=== PATIENT | female | born 1990 | race Asian ===

== ENCOUNTER → 2017-01-04 | Outpatient (CLI) | payer OTHER | LOC: HPND 13:05 | PROVIDERS: ATTEND Obstetrics & Gynecology | DX: O35.8XX0 Maternal care for other (suspected) fetal abnormality and damage, not applicable or unspecified (principal); Z3A.30 30 weeks gestation of pregnancy | CPT/HCPCS: 76811 ==

== ENCOUNTER → 2017-01-17 | Outpatient (CLI) | payer MEDICAID, OTHER ==
--- NOTE | 2017-01-17 15:44 | HHI.PCNN ---
Note Status Note Status: Consultation Condition: Good HPI Monitoring: Continuous Weight/Length/Head Circumferen Temperature Control: Crib Interval History Ms. Jason Castle and the father of the baby, . Bryan Duvall presented to [facility] today (01/17) for further evaluation of 3D u/s performed in OB office on 01/04/17 that was concerning for L unilateral cleft lip. 01/17 u/s confirms findings of unilateral L cleft lip with possible palate involvement. Parents had been educated by [facility] Dr. Kat regarding cleft lip/palate and given an information packet. Parents have also began doing their own research on the internet. DINKEY OPERATOR SLATE met with MOB and FOB to discuss care of infant. Mom is a 27y/o, (2 EAB with D & C). Mom denied any medication use during aside from PNV & Iron. There is no family history of genetic syndromes or congenital anomalies noted on either side of the family. Maternal cell free DNA was negative per discussion with Dr. Kat. Cleft lip/palate described, potential to be associated with other congenital anomalies discussed , need to assess 's ability to orally feed (mom desires to breast feed/ provide breast milk), potential need for NG feeds, and potential need for transfer to tertiary care facility if other anomalies noted at delivery or if is unable to orally feed. Parents were told that would ultimately need reconstructive surgery but the timing of that surgery would be at some point in the future and would be determined by the surgeon on a case by case basis. Dad was concerned about insurance coverage (mom currently has medicaid) with regards to reconstruction being considered cosmetic/elective. DINKEY OPERATOR SLATE informed parents that she was uninformed on the specifics of insurance coverage but that the reconstruction is not elective and that the craniofacial team involved in the reconstruction would be able to assist with navigating insurance coverage. Parents verbalized understanding and asked appropriate questions. They desire consultation with craniofacial teams at [facility] in [place] (referral made, contact number [phone]) and at [facility] in [place] (spoke with Dr. Conde and parental contact information given, office number [phone]). Parents were given NICU phone number and have contact information from [facility] if they have any further questions or if they do not receive contact from either practice to arrange consultation. Impression & Plan Problem List: (1) Fetus with suspected cleft lip and palate, antepartum Status: Acute Impression & Plan Remarks Uncomplicated for a 26 y/o, with a late diagnosis of cleft lip and potential cleft palate. Will plan on delivery at [place] with referral for consultation with craniofacial teams at [facility] in [place] and [facility] in [place]. 45 minutes spent on this consult with more than 50% of this time in face to face consultation/coordination of care with other facilities. Full Condition Update to: Mother, Father Maternal/Delivery/Infant Info Maternal Information Maternal Risk Factors Other: diagnosis of L unilateral cleft lip and possibly cleft palate. Maternal Hepatitis B: Negative Maternal VDRL: Negative Maternal Gonorrhea: Negative Maternal Chlamydia: Negative Maternal Group B Strep: Unknown Maternal HIV: Negative Other Maternal Labs: Rubella immune Results are first trimester labs. GBS has not yet been completed. Delivery Information Delivery Provider: Reina Maternal Blood Type: O Maternal Rh Type: Positive Information Planned Feeding: Breast Milk Problem Qualifiers (1) Fetus with suspected cleft lip and palate, antepartum: Qualified Code: O35.8XX0 - Fetus with suspected cleft lip and palate, antepartum, not applicable or unspecified fetus Lety Tirado Jan 17, 2017 15:44
== END ==
LOC: HPND 12:20
PROVIDERS: ATTEND Obstetrics & Gynecology
DX: O35.1XX0 Maternal care for (suspected) chromosomal abnormality in fetus, not applicable or unspecified (principal)
CPT/HCPCS: 76815

== ENCOUNTER → 2017-01-31 | Outpatient (CLI) | payer MEDICAID ==
[~2017-01-31] MED LIST: IBUP-232 PO; OXYC1TAB63 PO; PREN29TA PO; SENN1TAB PO
== END ==
LOC: HPND 12:19
PROVIDERS: ATTEND Obstetrics & Gynecology
DX: O35.8XX0 Maternal care for other (suspected) fetal abnormality and damage, not applicable or unspecified (principal)
CPT/HCPCS: 76816

== ENCOUNTER → 2017-02-28 | Outpatient (CLI) | payer MEDICAID | LOC: HPND 12:53 | PROVIDERS: ATTEND Obstetrics & Gynecology | DX: O35.1XX0 Maternal care for (suspected) chromosomal abnormality in fetus, not applicable or unspecified (principal) | CPT/HCPCS: 76816 ==

== ENCOUNTER 2017-03-12 11:48 | Inpatient (IN) | payer MEDICAID ==
[~2017-03-12] VITALS: Ht 154.9 cm; Wt 68.0 kg
[2017-03-12] VITALS (33 sets, daily range): BP systolic 92–124; BP diastolic 55–73; PULSE 62–160; RESP 18; TEMP 98.3–98.4
[2017-03-12] MEDS ORDERED: LACTATED RINGER'S 1000 ML INJ 1,000 ML IV PRN (12:34)
--- NOTE | 2017-03-12 12:34 | PD ---
HPI Chief Complaint rupture of membranes Travel History International Travel<30 Days: No Contact w/Intl Traveler<30Days: No Known Affected Area: No History of Present Illness HPI 26 year old who is at 40 weeks and 3 days was seen in the office today for a OB exam. During her examination was noted to be 2-3 cm with possible rupture membranes during the exam. Patient states that some fluid was seen during the examination and she noted contractions with the examination but minimal pain since then. She is group B strep negative and denies any etc. complications Weeks Gestation: 40 Para: 0 : 1 History Past Medical History Medical History: Denies Significant Hx Past Surgical History Surgical History: No Previous Surgery Family History Family History: Negative Social History Alcohol Use: No Tobacco Use: No Substance Abuse: No Allergies-Medications (Allergen,Severity, Reaction): Coded Allergies: No Known Allergies (Unverified , 03/12/17) Review of Systems Except as stated in HPI: all other systems reviewed are Neg Physical Exam Narrative GENERAL: Well-nourished, well-developed patient. SKIN: Warm and dry. HEAD: Normocephalic and atraumatic. EYES: No scleral icterus. No injection or drainage. ENT: No nasal drainage noted. Mucous membranes pink. Airway patent. NECK: Supple, trachea midline. No JVD. CARDIOVASCULAR: Regular rate and rhythm without murmurs, gallops, or rubs. RESPIRATORY: Breath sounds equal bilaterally. No accessory muscle use. ABDOMEN/GI: Abdomen soft, non-tender, bowel sounds present, no rebound, no guarding Gravid to 38 weeks size Fundal Height: [-] GENITOURINARY: External Genitalia: intact and normal in appearance BUS glands: Normal Cervix: Midposition Dilatation: 2-3 Effacement: 80 Station: -2 Presentation: Vertex Membranes: Membranes are palpable with a small amount of bloody fluid with slight elevation of the head. Amnisure is positive but sample was bloody as well Uterine Contractions: Occasional FHT's: Category: 1 Baseline: 140 Reactive: Moderate Variability: Moderate Decels: Absent EXTREMITIES: No cyanosis or edema. BACK: Nontender without obvious deformity. No CVA tenderness. NEUROLOGICAL: Awake and alert. Motor and sensory grossly within normal limits. Five out of 5 muscle strength in all muscle groups. Normal speech. Data Data Vital Signs Reviewed: Yes Group B Strep: Negative [facility] Medical Record Reviewed: Yes Plan 26-year-old at 40 weeks and 3 days, and GBS negative Rupture membranes today, patient is not in labor at this time Plan admission to labor and delivery Diagnosis Diagnosis: Primary Impression: 40 weeks gestation of Additional Impression: Premature rupture of membranes Kia Tony MD Mar 12, 2017 12:34
[2017-03-12] MEDS ORDERED: OXYTOCIN 30 UNITS-500ML PREMIX 500 ML IV ONE (12:45)
[2017-03-12] MEDS ORDERED: LIDOCAINE HCL 1% 50 ML VIAL INFIL PRN (12:45)
[2017-03-12] MEDS ORDERED: SODIUM CHLORID 0.9% 500 ML INJ 500 ML IV PRN (12:45)
[2017-03-12] MEDS ORDERED: CITRIC ACID-SODIUM CITRATE LIQ 30 ML UDC PO SCH (12:45)
[2017-03-12] MEDS ORDERED: LIDOCAINE HCL 1% 50 ML VIAL I-DERMAL PRN (12:45)
[2017-03-12] MEDS ORDERED: MINERAL OIL 10 ML VIAL TOPICAL PRN (12:45)
[2017-03-12] MEDS ORDERED: SODIUM CHLOR 0.9% 1000 ML INJ 1,000 ML IV PRN (12:54)
[2017-03-12 13:43] LABS: AUTOMATED NEUTROPHIL # 6.4 TH/MM3 (1.8-7.7); BASOPHIL # 0.1 TH/MM3 (0-0.2); BASOPHIL % 0.7 % (0.0-2.0); EOSINOPHIL # 0.1 TH/MM3 (0-0.4); EOSINOPHIL % 0.6 % (0.0-4.0); HEMATOCRIT 31.2 % (35.0-46.0); HEMO FLAGS DIFF FINAL; LYMPHOCYTE # 2.7 TH/MM3 (1.0-4.8); MEAN CELL VOLUME 69.8 FL (80.0-100.0); MEAN CORPUSCULAR HEMOGLOBIN 20.7 PG (27.0-34.0); MONO % 7.3 % (0.0-8.0); NEUT % 64.4 % (16.0-70.0); PLATELET COUNT 181 TH/MM3 (150-450); RED BLOOD COUNT 4.47 MIL/MM3 (4.00-5.30); RED CELL DISTRIBUTION WIDTH 17.3 % (11.6-17.2); WHITE BLOOD COUNT 9.9 TH/MM3 (4.0-11.0)
[2017-03-12 13:45] LABS: MEAN CORPUSCULAR HGB CONC 29.7 % (32.0-36.0)
[2017-03-12 13:51] LABS: BACTERIA, URINE RARE /hpf; BLOOD, URINE MOD (NEG); GLUCOSE,URINE NEG (NEG); HYALINE CAST, URINE 1 /lpf (RARE); KETONE, URINE NEG (NEG); NITRITE,URINE NEG (NEG); PH, URINE 6.5 (5.0-8.5); SQUAMOUS EPITHELIAL CELL URINE 2 /hpf (0-5); TRANSITIONAL EPI CELLS, URINE <1 /hpf; URINE COLOR LIGHT-YELLOW (YELLW/STRAW)
[2017-03-12 13:52] LABS: COMMENT (UR) CULTURE INDICATED; CULTURE IF INDICATED CULTURE INDICATED
[2017-03-12] MEDS: LACTATED RINGER'S 1000 ML INJ 1,000 ML IV SCH ×2 (13:55→20:34)
[2017-03-12] MEDS ORDERED: OXYTOCIN 30 UNITS/NS 500ML PREMIX IV SCH (15:00)
[2017-03-12] MEDS ORDERED: PREN29TA PO (17:25)
[2017-03-12] MEDS ORDERED: fentaNYL 2MCG-BUPIV 0.125% INJ 100 ML ONE (19:14)
[2017-03-12] MEDS ORDERED: ePHEDrine/NS 25 MG/5 ML SYR ONE (19:14)
[2017-03-12] MEDS ORDERED: DO NOT ADMINISTER ANTICOAGULANTS PRN (20:30)
[2017-03-12] MEDS ORDERED: ePHEDrine/NS 25 MG/5 ML SYR IV PRN (20:30)
[2017-03-12] MEDS ORDERED: NO SYSTEM NARCOTICS PRN (20:30)
[2017-03-12] MEDS ORDERED: fentaNYL 2MCG-BUPIV 0.125% 100 ML EPIDURAL SCH (20:30)
[2017-03-13] VITALS (30 sets, daily range): BP systolic 87–150; BP diastolic 50–88; PULSE 66–117; RESP 16–18; TEMP 98.5–100.5; O2SAT 92–96
[2017-03-13] MEDS ORDERED: LIDOCAINE HCL 1.5% PF SOLN 20 ML AMP ONE (02:31)
[2017-03-13] MEDS ORDERED: ONDANSETRON HCL 4 MG/2 ML VIAL ONE (05:50)
[2017-03-13] MEDS ORDERED: LACTATED RINGER'S 1000 ML INJ 1,000 ML IV ONE (08:34)
[2017-03-13] MEDS ORDERED: LACTATED RINGER'S 1000 ML INJ 1,000 ML IV SCH ×2 (09:04→14:37)
[2017-03-13] MEDS ORDERED: CARBOPROST TROMETHAMINE 250 MCG/ML VIAL ONE (09:10)
[2017-03-13 09:30] LABS: BLOOD GAS BASE EXCESS -3.4 mmol/L (-2-2); BLOOD GAS O2 HGB SATURATION 8 % (90-100); CORD BLOOD GAS HCO3 23 mmol/L (21-29); CORD BLOOD GAS PCO2 57 mmHG (34-78); CORD BLOOD GAS PH 7.23 (7.14-7.42); CORD BLOOD GAS PO2 10 mmHG (3.0-40.0); DRAW SITE CORD BLOOD; STAT YES
[2017-03-13] MEDS ORDERED: MISOPROSTOL 100 MCG TAB ONE (09:42)
[2017-03-13] MEDS ORDERED: ACETAMINOPHEN 325 MG TAB PO PRN (09:45)
[2017-03-13] MEDS ORDERED: SIMETHICONE 80 MG CHEWABLE TAB PO PRN (09:45)
[2017-03-13] MEDS ORDERED: ZOLPIDEM TARTRATE 5 MG TAB PO PRN (09:45)
[2017-03-13] MEDS ORDERED: SODIUM CHLORIDE 0.9% FLUSH 10 ML FLUSH IV FLUSH PRN (09:45)
[2017-03-13] MEDS ORDERED: OXYTOCIN 30 UNITS-500ML PREMIX 500 ML IV ONE ×2 (09:45)
[2017-03-13] MEDS ORDERED: ONDANSETRON HCL 4 MG/2 ML VIAL IV PUSH PRN (09:45)
[2017-03-13] MEDS ORDERED: CITRIC ACID-SODIUM CITRATE LIQ 30 ML UDC PO SCH (10:15)
[2017-03-13] MEDS ORDERED: HYDROmorphone HCL PF 2 MG/ML VIAL IV PRN (10:20)
[2017-03-13] MEDS ORDERED: HYDROmorphone HCL PF 2 MG/ML VIAL ONE (10:22)
--- NOTE | 2017-03-13 11:22 | MP ---
cc: Hannah HUANG MD DATE OF SURGERY 03/13/2017 PREOPERATIVE DIAGNOSIS Arrest of descent. POSTOPERATIVE DIAGNOSIS Arrest of descent. PROCEDURE Primary low transverse ANESTHESIA Epidural SURGEON Darius Huang MD and Bella Iraheta, R3 FINDINGS A normal viable male weight 8 pounds 3 ounces. 's 01/24. COMPLICATIONS None COUNTS Correct ESTIMATED BLOOD LOSS 600 cc FLUIDS Crystalloids CONDITION The patient tolerated the procedure well and went to the recovery room in good condition. INDICATION FOR THIS PROCEDURE This is a patient who came into the office for stripping at 40 weeks in two days. We stripped her and at that time right after, she broke her water. She was sent to the labor room and she was not ny. We started a little Pitocin. She progressed to complete/complete by 04:30 a.m. After several hours of pushing, the baby was at +2. We recalled arrest of descent at that time and went for a primary low transverse section. PROCEDURE IN DETAIL The patient was taken to the operating room, identified by name band and verbally. The time out was done and patient was prepped and draped in the usual sterile fashion for section. A Pfannenstiel incision was made, carried down to the fascia. The fascia was taken off the rectus muscle by blunt and sharp dissection. The rectus muscles were spread bluntly and the peritoneum entered under direct vision without difficulty. The incision was extended and a bladder blade was placed. A bladder flap was created in the usual fashion and the uterus was incised transversely along the lower uterine segment. Once the uterine cavity was entered, clear fluid was noted. The baby's head was very low in the pelvis after pushing for two hours and the vertex was grasped. With fundal pressure, we could not quite get the head to deliver, so we used a suction device which the baby delivered easily. The hypopharynx and nasopharynx were suctioned and the remainder of the infant was delivered without difficulty. The cord doubly clamped and cut and handed to the resuscitation team who was present. The cord blood was obtained and the placenta was delivered manually. The uterus was curettaged twice with a wet lap and the uterine incision was repaired with 0 Vicryl in a running locking fashion in two layers, the second layer imbricating the first. Once this had been accomplished, all incisions were carefully inspected. Hemostasis was excellent. The uterus was delivered back into the abdomen and the gutters were cleaned of blood and debris. The rectus muscles were reapproximated with 0 Vicryl in a running fashion and the fascia was repaired with 0 Vicryl in a running fashion bilaterally. The subcu was repaired with two layers of 3-0 Vicryl and the skin was repaired with a 4-0 Monocryl in a subcuticular fashion. The wound was sterilely dressed. She tolerated the procedure well and went to the recovery room in satisfactory condition. R. MD JANET Franz/RUPAL /9:34 AM /11:13 AM
[2017-03-13] MEDS ORDERED: ceFAZolin INJ 1,000 MG VIAL IV ONE (12:00)
[2017-03-13] MEDS ORDERED: ONDANSETRON HCL 4 MG/2 ML VIAL IV PUSH ONE (12:00)
[2017-03-13] MEDS ORDERED: EPIDURAL-DIPHENHYDRAMINE HCL 50 MG CAP PO PRN (12:00)
[2017-03-13] MEDS ORDERED: ESMOLOL HCL 100 MG/10 ML VIAL IV ONE (12:00)
[2017-03-13] MEDS ORDERED: EPIDURAL-NO SYSTEMIC NARCOTICS PRN (12:00)
[2017-03-13] MEDS ORDERED: OXYTOCIN 10 UNIT/ML AMP IV ONE (12:00)
[2017-03-13] MEDS ORDERED: EPIDURAL-DIPHENHYDRAMINE HCL 50 MG/ML VIAL IV PUSH PRN (12:00)
[2017-03-13] MEDS ORDERED: EPIDURAL-DO NOT ADMINISTER ANTICOAGULANTS PRN (12:00)
[2017-03-13] MEDS ORDERED: EPIDURAL-NALOXONE HCL 0.4 MG/ML AMP IV PUSH PRN (12:00)
[2017-03-13] MEDS ORDERED: MORPHINE SULFATE PF 5 MG/10 ML VIAL ONE (12:00)
[2017-03-13] MEDS ORDERED: PHENYLEPH/NS 1000 MCG/10 ML SYR IV ONE (12:00)
[2017-03-13] MEDS ORDERED: PROPOFOL 200 MG/20 ML AMP IV ONE (12:00)
[2017-03-13] MEDS ORDERED: MISOPROSTOL 100 MCG TAB RECTAL ONE (14:30)
[2017-03-13] MEDS: oxyCODONE/ACETAMINOPHEN 5 MG/325 MG TAB PO PRN ×2 (18:50→23:54)
[2017-03-13] MEDS: IBUPROFEN 600 MG TAB PO PRN ×2 (18:51→23:54)
[2017-03-13] MEDS ORDERED: OXYTOCIN 30 UNITS-500ML PREMIX 500 ML IV PRN (19:45)
[2017-03-13] MEDS ORDERED: SODIUM CHLORIDE 0.9% FLUSH 10 ML FLUSH IV FLUSH SCH (21:00)
[2017-03-13] MEDS: DOCUSATE SODIUM 50 MG/SENNA 8.6 MG TAB PO PRN (23:54)
[2017-03-14 00:30] VITALS: BP 126/80; PULSE 75; RESP 16; TEMP 98.9
[2017-03-14 04:00] VITALS: BP 120/82; PULSE 70; RESP 14
[2017-03-14 05:57] LABS: AUTOMATED NEUTROPHIL # 17.4 TH/MM3 (1.8-7.7); BASOPHIL % 0.1 % (0.0-2.0); EOSINOPHIL % 0.2 % (0.0-4.0); HEMATOCRIT 22.1 % (35.0-46.0); LYMPH % 10.3 % (9.0-44.0); LYMPHOCYTE # 2.2 TH/MM3 (1.0-4.8); MEAN CELL VOLUME 70.7 FL (80.0-100.0); MEAN CORPUSCULAR HEMOGLOBIN 20.2 PG (27.0-34.0); MONO % 6.2 % (0.0-8.0); NEUT % 83.2 % (16.0-70.0); PLATELET COUNT 117 TH/MM3 (150-450); RED BLOOD COUNT 3.13 MIL/MM3 (4.00-5.30); RED CELL DISTRIBUTION WIDTH 17.1 % (11.6-17.2); WHITE BLOOD COUNT 20.9 TH/MM3 (4.0-11.0)
[2017-03-14 06:03] LABS: HEMO FLAGS AUTO DIFF; MEAN CORPUSCULAR HGB CONC 28.6 % (32.0-36.0)
[2017-03-14 07:25] LABS: ACANTHOCYTES OCC (NORMAL); OVALOCYTES 1+ (NORMAL); POLYCHROMASIA 2.3 % (0.0-1.9)
[2017-03-14 07:26] LABS: PLATELET ESTIMATE SMEAR LOW (NORMAL); PLATELET MORPHOLOGY ENLARGED (NORMAL); SCAN/DIFF AUTO DIFF CONFIRMED
[2017-03-14] MEDS ORDERED: SODIUM CHLOR 0.9% 250 ML INJ 250 ML IV ONE (08:15)
[2017-03-14] MEDS ORDERED: ACETAMINOPHEN 325 MG TAB PO PRN (08:15)
[2017-03-14] MEDS ORDERED: diphenhydrAMINE HCL 25 MG CAP PO PRN (08:15)
[2017-03-14 08:40] VITALS: BP 101/65; PULSE 83; RESP 18; TEMP 98.1
[2017-03-14] MEDS: MULTIVIT/MIN/PREN/FOL AC/IRON PRENATAL TAB PO SCH (09:32)
[2017-03-14 10:18] LABS: REVIEW FLAG FINAL
[2017-03-14] MEDS: oxyCODONE/ACETAMINOPHEN 5 MG/325 MG TAB PO PRN ×4 (11:05→23:17)
[2017-03-14] MEDS: IBUPROFEN 600 MG TAB PO PRN ×3 (11:06→23:16)
--- NOTE | 2017-03-14 12:39 | HHI.OB ---
Subjective Post Operative Day: 1 Objective Result Diagram: 03/14/17 0945 Objective Remarks GENERAL: Well-nourished, well-developed patient. CARDIOVASCULAR: Regular rate and rhythm without murmurs, gallops, or rubs. RESPIRATORY: Breath sounds equal bilaterally. No accessory muscle use. ABDOMEN/GI: Abdomen soft, non-tender, bowel sounds present. Incision: Clean, dry and intact. Fundus: dressing Firm, non-tender at umbilicus. GENITOURINARY: Light to moderate bleeding., swelling of labia EXTREMITIES: No cyanosis or edema, non-tender, without signs of DVT. Medications and IVs Current Medications Medications (Trade) Dose Ordered Sig/Alyson Route Start Time Stop Time Status Last Admin Oxytocin 500 ml @ 100 mls/hr UNSCH X1 PRN IV 03/13/17 19:45 03/14/17 19:44 03/13/17 16:15 (NS Flush) 2 ml BID IV FLUSH 03/13/17 21:00 (NS Flush) 2 ml UNSCH PRN IV FLUSH 03/13/17 09:45 (Mylicon Chew) 80 mg QID PRN PO 03/13/17 09:45 (Tylenol) 650 mg Q6H PRN PO 03/13/17 09:45 (Motrin) 600 mg Q6H PRN PO 03/13/17 09:45 03/14/17 11:06 (Percocet 5-325 Mg) 1 tab Q4H PRN PO 03/13/17 09:45 03/13/17 18:50 (Percocet 5-325 Mg) 2 tab Q4H PRN PO 03/13/17 09:45 03/14/17 11:05 (Julita-Colace) 2 tab Q12H PRN PO 03/13/17 09:45 03/13/17 23:54 (Ambien) 5 mg HS PRN PO 03/13/17 09:45 (M-M-R Ii Inj) 0.5 ml ONCE ONCE SQ 03/14/17 16:00 03/14/17 16:01 (Boostrix Inj) 0.5 ml ONCE ONCE IM 03/14/17 16:00 03/14/17 16:01 (Zofran Inj) 4 mg Q6H PRN IV PUSH 03/13/17 09:45 (Stuartnatal Plus 3 ) 1 tab DAILY PO 03/14/17 09:00 03/14/17 09:32 (Dilaudid Pf Inj) 0.5 mg Q5M PRN IV 03/13/17 10:20 Sodium Chloride 250 ml @ 15 mls/hr ONCE ONCE IV 03/14/17 08:15 03/15/17 00:54 (Tylenol) 650 mg Q4H PRN PO 03/14/17 08:15 (Benadryl) 25 mg Q4H PRN PO 03/14/17 08:15 Iron Sucrose 200 mg/Sodium Chloride 110 ml @ 110 mls/hr Q24H IV 03/14/17 13:00 03/16/17 13:59 Assessment/Plan Problem List: (1) Severe anemia ICD Codes: D64.9 - Anemia, unspecified Status: Acute Plan: repeat cbc, consider transfusion (2) S/P primary low transverse ICD Codes: Z98.891 - History of uterine scar from previous surgery Assessment and Plan pod 1 pt feeling well but exhausted vs stable 101/65, P 83, T 98.0 hgb 6.3, we will repeat cbc, discussed with pt possible need for blood transfusion pain well managed with oral pain medication labia swollen, pt will maintain hazel cath at this time, culturally pt does not use ice but she has agreed to try ice pack to reduce swelling baby with cleft lip and doing fine routine care Discharge Planning consider dc home in 1-2 day Melissa Hansen Mar 14, 2017 12:39
[2017-03-14] MEDS: IRON SUCROSE INJ 200 MG in SODIUM CHLORIDE 0.9% INJ 100 ML IV SCH (12:49)
[2017-03-14 14:25] VITALS: BP 101/67; PULSE 91; RESP 18; TEMP 97.8
[2017-03-14] MEDS ORDERED: DIPHTH/TETANUS/ACEL PERTUSSIS (BOOSTER) 0.5 ML VIAL/PFS IM ONE (16:00)
[2017-03-14] MEDS ORDERED: MEASLES, MUMPS, RUBELLA VACCINE 0.5 ML VIAL SQ ONE (16:00)
[2017-03-14] MEDS: DOCUSATE SODIUM 50 MG/SENNA 8.6 MG TAB PO PRN (17:27)
[2017-03-14 20:00] VITALS: BP 118/79; PULSE 84; RESP 16; TEMP 98.9
[2017-03-15 06:01] LABS: HEMATOCRIT 23.3 % (35.0-46.0); MEAN CELL VOLUME 69.5 FL (80.0-100.0); MEAN CORPUSCULAR HEMOGLOBIN 20.3 PG (27.0-34.0); PLATELET COUNT 145 TH/MM3 (150-450); RED BLOOD COUNT 3.35 MIL/MM3 (4.00-5.30); RED CELL DISTRIBUTION WIDTH 17.5 % (11.6-17.2); WHITE BLOOD COUNT 17.6 TH/MM3 (4.0-11.0)
[2017-03-15 06:06] LABS: MEAN CORPUSCULAR HGB CONC 29.2 % (32.0-36.0)
[2017-03-15 06:07] LABS: REVIEW FLAG FINAL
[2017-03-15] MEDS: IBUPROFEN 600 MG TAB PO PRN ×3 (06:29→23:02)
[2017-03-15] MEDS: DOCUSATE SODIUM 50 MG/SENNA 8.6 MG TAB PO PRN (06:29)
[2017-03-15] MEDS: oxyCODONE/ACETAMINOPHEN 5 MG/325 MG TAB PO PRN ×4 (06:30→23:02)
[2017-03-15 07:50] VITALS: BP 109/69; PULSE 77; RESP 14; TEMP 98.2
[2017-03-15] MEDS: MULTIVIT/MIN/PREN/FOL AC/IRON PRENATAL TAB PO SCH (08:12)
--- NOTE | 2017-03-15 08:22 | PD.PN.STU ---
Subjective Remarks Ms. Castle is a 27 y/o female who was seen day 2 post after vaginal delivery was attempted but discontinued due to arrested descent. We are also following her for a hemoglobin of 6.3 measured yesterday morning. Her current complaints are felling fatigued and pain. As of now, she is not experiencing any pain since taking percocet. She experiences the pain in the left part of her Csection site and in her vagina. It is mostly unchanged since yesterday and is described as achy. Her fatigue is unchanged since yesterday as well. She did not sleep well last night since she was focused on pumping for her . When patient moved from the bed to upright in the chair, she experienced dizziness and needed assitance from the nurses. Patient denies headache, visual changes, nausea, fever, chills. SOB. The nurse reports scant to mild bleeding when changing the catheter, however, none when applying pressure on the uterus. Patient has good appetite and is drinking adequate fluids. Objective Vitals Laboratory Tests Test 03/12/17 12:46 03/13/17 09:19 03/14/17 05:01 03/14/17 09:45 Hemoglobin 9.3 GM/DL (11.6-15.3) 6.3 GM/DL (11.6-15.3) 6.7 GM/DL (11.6-15.3) Hematocrit 31.2 % (35.0-46.0) 22.1 % (35.0-46.0) 23.0 % (35.0-46.0) Mean Corpuscular Volume 69.8 FL (80.0-100.0) 70.7 FL (80.0-100.0) Mean Corpuscular Hemoglobin 20.7 PG (27.0-34.0) 20.2 PG (27.0-34.0) Mean Corpuscular Hemoglobin Concent 29.7 % (32.0-36.0) 28.6 % (32.0-36.0) Red Cell Distribution Width 17.3 % (11.6-17.2) Mean Platelet Volume 11.5 FL (7.0-11.0) Urine Turbidity HAZY (CLEAR) Urine Occult Blood MOD (NEG) Urine Leukocyte Esterase MOD (NEG) Urine RBC 7 /hpf (0-3) Urine WBC Clumps RARE (NONE) Urine Bacteria RARE /hpf (NONE) Blood Gas Base Excess -3.4 mmol/L (-2-2) Blood Gas Oxygen Saturation 8 % (90-100) White Blood Count 20.9 TH/MM3 (4.0-11.0) Red Blood Count 3.13 MIL/MM3 (4.00-5.30) Platelet Count 117 TH/MM3 (150-450) Neutrophils (%) (Auto) 83.2 % (16.0-70.0) Neutrophils # (Auto) 17.4 TH/MM3 (1.8-7.7) Monocytes # (Auto) 1.3 TH/MM3 (0-0.9) Platelet Estimate LOW (NORMAL) Platelet Morphology Comment ENLARGED (NORMAL) Polychromasia 2.3 % (0.0-1.9) Basophilic Stippling MOD (NORMAL) Ovalocytes 1+ (NORMAL) Acanthocytes OCC (NORMAL) Test 03/15/17 05:48 White Blood Count 17.6 TH/MM3 (4.0-11.0) Red Blood Count 3.35 MIL/MM3 (4.00-5.30) Hemoglobin 6.8 GM/DL (11.6-15.3) Hematocrit 23.3 % (35.0-46.0) Mean Corpuscular Volume 69.5 FL (80.0-100.0) Mean Corpuscular Hemoglobin 20.3 PG (27.0-34.0) Mean Corpuscular Hemoglobin Concent 29.2 % (32.0-36.0) Red Cell Distribution Width 17.5 % (11.6-17.2) Platelet Count 145 TH/MM3 (150-450) Result Diagram: 03/15/17 0548 Objective Remarks Pt is pleasant and cooperative, in no acute distress. She does seem somewhat anxious about her baby. HEENT: normacephalic HEART: regular rate and rhythm. normal S1 and S2 LUNGS: clear to auscultation Abdomen: wound apears to be healing well, no signs of infection Vagina still looks swollen but it appears to be improving Rectum: Rectal Prolapse A/P Assessment and Plan 1. Severe Anemia, Fatigue Hg has improved to 6.8 this morning. She denied blood transfusion after it was recommended and she was counseled on the benefits and risks, especially with her weakness and dizziness upon getting out of bed. Will address her sleeping and probation counselor her on how it takes time to produce breast milk so she isnt as worried 2. Pain Patient has had relief with percocet and motorin. Take motorin around the clock, 600 mg ever 6 hrs. take percocet prn for pain. will continue to monitor vulvar swelling 3. Rectal Prolapse reduction will be performed 4. Post-op Continue monitoring patient status, vitals, and labs. Will most likely remove catheter as vulvar swelling seems to be better. Zoran Matute M3 Mar 15, 2017 08:22
[2017-03-15] MEDS: IRON SUCROSE INJ 200 MG in SODIUM CHLORIDE 0.9% INJ 100 ML IV SCH (12:59)
[2017-03-15 15:40] VITALS: BP 122/71; PULSE 65; RESP 16; TEMP 98
[2017-03-15] MEDS ORDERED: MAGNESIUM HYDROXIDE SUSP 30 ML CUP PO ONE (19:45)
[2017-03-15 22:00] VITALS: BP 118/54; PULSE 89; RESP 20; TEMP 98.1
[2017-03-16] VITALS (7 sets, daily range): BP systolic 110–139; BP diastolic 64–86; PULSE 61–80; RESP 16–18; TEMP 98.2–100
[2017-03-16] MEDS: MULTIVIT/MIN/PREN/FOL AC/IRON PRENATAL TAB PO SCH (10:36)
[2017-03-16] MEDS: IBUPROFEN 600 MG TAB PO PRN ×2 (10:36→15:36)
[2017-03-16] MEDS: oxyCODONE/ACETAMINOPHEN 5 MG/325 MG TAB PO PRN ×2 (10:37→15:36)
[2017-03-16 12:29] LABS: HEMATOCRIT 24.5 % (35.0-46.0); MEAN CELL VOLUME 68.7 FL (80.0-100.0); PLATELET COUNT 222 TH/MM3 (150-450); RED BLOOD COUNT 3.56 MIL/MM3 (4.00-5.30); RED CELL DISTRIBUTION WIDTH 17.4 % (11.6-17.2); REVIEW FLAG FINAL; WHITE BLOOD COUNT 14.5 TH/MM3 (4.0-11.0)
[2017-03-16 12:32] LABS: MEAN CORPUSCULAR HGB CONC 29.1 % (32.0-36.0)
[2017-03-16] MEDS: IRON SUCROSE INJ 200 MG in SODIUM CHLORIDE 0.9% INJ 100 ML IV SCH (13:00)
--- NOTE | 2017-03-16 13:08 | HHI.OB ---
Subjective Remarks Ms. Castle is seen in the hospital 3 days post C section after vaginal delivery was unable to occur due to arrest of descent. Overall she is still feeling pain and pressure in her vulvar region, likely due to her swelling. She also has pain around her Csection scar. She is currently not experiencing any pain which she attributes to her round the clock Motrin and Percocet as needed for pain. Her catheter remains today, will likely take it out later today. When she gets up out of bed and moves to the chair, she experiences weakness and dizziness, and she needs assistance. she currently denies headache, fever, visual changes, SOB, and bleeding other than mild spotting on a pad. She has still not had a bowel movement since sunday but had experienced flatulence yesterday. Objective Vitals/I&O Allergies Coded Allergies Type Severity Reaction Last Updated Verified No Known Allergies 03/12/17 No Laboratory Tests Test 03/14/17 05:01 03/14/17 09:45 03/15/17 05:48 03/16/17 11:25 White Blood Count 20.9 TH/MM3 17.6 TH/MM3 14.5 TH/MM3 Red Blood Count 3.13 MIL/MM3 3.35 MIL/MM3 3.56 MIL/MM3 Hemoglobin 6.3 GM/DL 6.7 GM/DL 6.8 GM/DL 7.1 GM/DL Hematocrit 22.1 % 23.0 % 23.3 % 24.5 % Mean Corpuscular Volume 70.7 FL 69.5 FL 68.7 FL Mean Corpuscular Hemoglobin 20.2 PG 20.3 PG 20.0 PG Mean Corpuscular Hemoglobin Concent 28.6 % 29.2 % 29.1 % Red Cell Distribution Width 17.1 % 17.5 % 17.4 % Platelet Count 117 TH/MM3 145 TH/MM3 222 TH/MM3 Mean Platelet Volume 10.6 FL 10.6 FL 9.8 FL Neutrophils (%) (Auto) 83.2 % Lymphocytes (%) (Auto) 10.3 % Monocytes (%) (Auto) 6.2 % Eosinophils (%) (Auto) 0.2 % Basophils (%) (Auto) 0.1 % Neutrophils # (Auto) 17.4 TH/MM3 Lymphocytes # (Auto) 2.2 TH/MM3 Monocytes # (Auto) 1.3 TH/MM3 Eosinophils # (Auto) 0.0 TH/MM3 Basophils # (Auto) 0.0 TH/MM3 CBC Comment AUTO DIFF Differential Comment AUTO DIFF CONFIRMED Platelet Estimate LOW Platelet Morphology Comment ENLARGED Polychromasia 2.3 % Basophilic Stippling MOD Ovalocytes 1+ Acanthocytes OCC Orders Procedure Category Date Status Time Misoprostol (Cytotec) MED 03/13/17 Complete 14:30 Hydromorphone Pf Inj MED 03/13/17 In Process (Dilaudid Pf Inj) 10:20 Cefazolin Inj (Ancef MED 03/14/17 Complete Inj) 04:00 Hgb & Hct LAB 03/14/17 Complete 08:07 Red Blood Cells (Rbc) BBK 03/14/17 In Process 08:07 Blood Product LICHA 03/14/17 In Process Administration 08:07 Instruction LICHA 03/14/17 In Process 08:07 Sodium Chlor 0.9% 250 MED 03/14/17 Complete Ml Inj (Ns 250 Ml 08:15 Acetaminophen MED 03/14/17 In Process (Tylenol) 08:15 Diphenhydramine MED 03/14/17 In Process (Benadryl) 08:15 Type And Screen BBK 03/14/17 In Process 08:07 Iron Sucrose Inj MED 03/14/17 In Process (Venofer Inj) 13:00 Cbc No Diff, Includes LAB 03/15/17 Complete Plts 06:00 Phenyleph/Ns 1000 MED 03/13/17 Complete Mcg/10ml Syr (Neosynep 12:00 Esmolol Bolus Inj MED 03/13/17 Complete (Brevibloc Bolus Inj) 12:00 Ondansetron Inj MED 03/13/17 Complete (Zofran Inj) 12:00 Cefazolin Inj (Ancef MED 03/13/17 Complete Inj) 12:00 Fentanyl Inj MED 03/13/17 Complete (Fentanyl Inj) 12:00 Propofol 200 Mg/20 Ml MED 03/13/17 Complete Inj (Diprivan 200 12:00 Morphine Pf Inj MED 03/13/17 Complete (Duramorph Pf 0.5 12:00 Oxytocin Inj (Pitocin MED 03/13/17 Complete Inj) 12:00 Magnesium Hydroxide MED 03/15/17 Complete Liq (Milk Of Magnesi 19:45 Instruction LICHA 03/15/17 In Process 19:58 Cbc No Diff, Includes LAB 03/16/17 Complete Plts 07:58 Instruction LICHA 03/16/17 In Process 10:02 Vital Signs Date Time Temp Pulse Resp B/P (MAP) Pulse Ox O2 Delivery O2 Flow Rate FiO2 03/15/17 15:40 98.0 65 16 122/71 (88) 03/15/17 07:50 98.2 77 14 109/69 (82) 03/14/17 20:00 118/79 (92) 03/14/17 20:00 98.9 84 16 03/14/17 14:25 97.8 91 18 101/67 (78) 03/14/17 08:40 98.1 83 18 101/65 (77) 03/14/17 04:00 70 14 120/82 (95) 03/14/17 00:30 75 16 126/80 (95) 03/14/17 00:30 98.9 03/13/17 20:30 78 126/88 (101) 03/13/17 20:30 98.9 16 03/13/17 15:30 99 113/68 (83) 03/13/17 15:30 99.5 16 Vital Signs Date Time Temp Pulse Resp B/P (MAP) Pulse Ox O2 Delivery O2 Flow Rate FiO2 03/15/17 15:40 98.0 65 16 122/71 (88) Result Diagram: 03/16/17 1125 Objective Remarks GENERAL: Well-nourished, well-developed patient. CARDIOVASCULAR: Regular rate and rhythm without murmurs, gallops, or rubs. RESPIRATORY: Breath sounds equal bilaterally. No accessory muscle use. ABDOMEN/GI: Abdomen soft, non-tender, bowel sounds present. Incision: Clean, dry and intact. Fundus: dressing Firm, non-tender at umbilicus. GENITOURINARY: Light to moderate bleeding., swelling of labia EXTREMITIES: No cyanosis or edema, non-tender, without signs of DVT. Medications and IVs Current Medications Medications (Trade) Dose Ordered Sig/Alyson Route Start Time Stop Time Status Last Admin (NS Flush) 2 ml BID IV FLUSH 03/13/17 21:00 03/14/17 12:45 (NS Flush) 2 ml UNSCH PRN IV FLUSH 03/13/17 09:45 (Mylicon Chew) 80 mg QID PRN PO 03/13/17 09:45 (Tylenol) 650 mg Q6H PRN PO 03/13/17 09:45 (Motrin) 600 mg Q6H PRN PO 03/13/17 09:45 03/16/17 10:36 (Percocet 5-325 Mg) 1 tab Q4H PRN PO 03/13/17 09:45 03/16/17 10:37 (Percocet 5-325 Mg) 2 tab Q4H PRN PO 03/13/17 09:45 03/15/17 06:30 (Julita-Colace) 2 tab Q12H PRN PO 03/13/17 09:45 03/15/17 06:29 (Ambien) 5 mg HS PRN PO 03/13/17 09:45 (Zofran Inj) 4 mg Q6H PRN IV PUSH 03/13/17 09:45 (Stuartnatal Plus 3 ) 1 tab DAILY PO 03/14/17 09:00 03/16/17 10:36 (Dilaudid Pf Inj) 0.5 mg Q5M PRN IV 03/13/17 10:20 (Tylenol) 650 mg Q4H PRN PO 03/14/17 08:15 (Benadryl) 25 mg Q4H PRN PO 03/14/17 08:15 Iron Sucrose 200 mg/Sodium Chloride 110 ml @ 110 mls/hr Q24H IV 03/14/17 13:00 03/16/17 13:59 03/15/17 12:59 Assessment/Plan Problem List: (1) Severe anemia ICD Codes: D64.9 - Anemia, unspecified Status: Acute Plan: repeat cbc, consider transfusion (2) S/P primary low transverse ICD Codes: Z98.891 - History of uterine scar from previous surgery Assessment and Plan pod 3 1. Severe anemia, fatigue Hemoglobin has increased to 7.1 and is symptomatic. was counseled again on blood transfusion, to which she accepted 2. Pain take Motrin around the clock, Percocet as needed 3. constipation stool softener, milk of magnesia 4. hemorrhoid ProctoFoam 5. post op urinary catheter to be removed today. vulvar swelling looks to have some improvement Discharge Planning consider dc home in 1-2 day Hannah Huang MD Mar 16, 2017 13:08
[2017-03-16] MEDS ORDERED: diphenhydrAMINE HCL 50 MG/ML VIAL IV ONE (14:30)
[2017-03-17] MEDS: DOCUSATE SODIUM 50 MG/SENNA 8.6 MG TAB PO PRN (05:25)
[2017-03-17] MEDS: oxyCODONE/ACETAMINOPHEN 5 MG/325 MG TAB PO PRN (05:25)
[2017-03-17] MEDS: IBUPROFEN 600 MG TAB PO PRN (05:25)
[2017-03-17 05:28] LABS: AUTOMATED NEUTROPHIL # 10.7 TH/MM3 (1.8-7.7); BASOPHIL # 0.2 TH/MM3 (0-0.2); BASOPHIL % 1.6 % (0.0-2.0); EOSINOPHIL # 0.3 TH/MM3 (0-0.4); HEMATOCRIT 31.6 % (35.0-46.0); LYMPH % 21.8 % (9.0-44.0); LYMPHOCYTE # 3.3 TH/MM3 (1.0-4.8); MEAN CELL VOLUME 72.9 FL (80.0-100.0); MEAN CORPUSCULAR HEMOGLOBIN 22.1 PG (27.0-34.0); MEAN CORPUSCULAR HGB CONC 30.2 % (32.0-36.0); MONO % 4.1 % (0.0-8.0); NEUT % 70.5 % (16.0-70.0); PLATELET COUNT 210 TH/MM3 (150-450); RED BLOOD COUNT 4.34 MIL/MM3 (4.00-5.30); RED CELL DISTRIBUTION WIDTH 20.5 % (11.6-17.2); WHITE BLOOD COUNT 15.2 TH/MM3 (4.0-11.0)
[2017-03-17 05:41] LABS: HEMO FLAGS AUTO DIFF
[2017-03-17 07:38] LABS: BANDS 4 % (0-6); EOSINOPHILS 1 % (0-4); NEUTROPHIL # MANUAL DIFF 10.8 TH/MM3 (1.8-7.7); POLYS (SEG NEUTROPHILS) 67 % (16-70); WBC DIFF SAMPLE 100
[2017-03-17 07:39] LABS: OVALOCYTES 1+ (NORMAL); PLATELET ESTIMATE SMEAR NORMAL (NORMAL); PLATELET MORPHOLOGY NORMAL (NORMAL); POLYCHROMASIA 2.8 % (0.0-1.9); SCAN/DIFF FINAL DIFF MANUAL; TARGET CELLS 1+ (NORMAL); TEARDROP RBCS 1+ (NORMAL)
[2017-03-17 08:10] VITALS: BP 133/77; PULSE 68; RESP 18; TEMP 98.2
--- NOTE | 2017-03-17 10:19 | HHI.OB ---
Subjective Post Operative Day: 4 Remarks s/p primary LTCD after arrest of descent and pushing for >3 hours; had significant postop anemia, swelling, pain; had transfusion 2u PRBCs yesterday, hazel finally d/c'd yesterday and today pt markedly improved, ambulating, voiding, tolerating diet, pain well controlled, meeting all d/c criteria Objective Vitals/I&O Vital Signs Date Time Temp Pulse Resp B/P (MAP) Pulse Ox O2 Delivery O2 Flow Rate FiO2 03/16/17 22:05 98.8 74 18 139/86 03/16/17 20:00 98.5 03/16/17 20:00 61 16 110/64 (79) 03/16/17 19:24 98.2 68 16 117/67 03/16/17 19:06 98.5 72 16 120/69 03/16/17 15:44 98.6 70 18 129/80 03/16/17 15:27 99.2 75 121/69 Result Diagram: 03/17/17 0504 Objective Remarks GENERAL: Well-nourished, well-developed patient. CARDIOVASCULAR: Regular rate and rhythm without murmurs, gallops, or rubs. RESPIRATORY: Breath sounds equal bilaterally. No accessory muscle use. ABDOMEN/GI: Abdomen soft, non-tender, bowel sounds present. Incision: Clean, dry and intact. Fundus: Firm, non-tender at umbilicus. GENITOURINARY: Light bleeding. EXTREMITIES: No cyanosis or edema, non-tender, without signs of DVT. Medications and IVs Current Medications Medications (Trade) Dose Ordered Sig/Alyson Route Start Time Stop Time Status Last Admin (NS Flush) 2 ml BID IV FLUSH 03/13/17 21:00 03/14/17 12:45 (NS Flush) 2 ml UNSCH PRN IV FLUSH 03/13/17 09:45 (Mylicon Chew) 80 mg QID PRN PO 03/13/17 09:45 (Tylenol) 650 mg Q6H PRN PO 03/13/17 09:45 (Motrin) 600 mg Q6H PRN PO 03/13/17 09:45 03/17/17 05:25 (Percocet 5-325 Mg) 1 tab Q4H PRN PO 03/13/17 09:45 03/16/17 15:36 (Percocet 5-325 Mg) 2 tab Q4H PRN PO 03/13/17 09:45 03/17/17 05:25 (Julita-Colace) 2 tab Q12H PRN PO 03/13/17 09:45 03/17/17 05:25 (Ambien) 5 mg HS PRN PO 03/13/17 09:45 (Zofran Inj) 4 mg Q6H PRN IV PUSH 03/13/17 09:45 (Stuartnatal Plus 3 ) 1 tab DAILY PO 03/14/17 09:00 03/16/17 10:36 (Dilaudid Pf Inj) 0.5 mg Q5M PRN IV 03/13/17 10:20 (Tylenol) 650 mg Q4H PRN PO 03/14/17 08:15 (Benadryl) 25 mg Q4H PRN PO 03/14/17 08:15 Assessment/Plan Problem List: (1) S/P primary low transverse ICD Codes: Z98.891 - History of uterine scar from previous surgery Status: Acute (2) Severe anemia ICD Codes: D64.9 - Anemia, unspecified Status: Acute Plan: repeat cbc, consider transfusion Assessment and Plan pod 4 markedly improved today s/p transfusion yesterday; meeting all criteria, will d/ c to home today f/u w Dr. Huang 1 wk for wound check postop precautions & wound care instructions discussed Discharge Planning today Betsy Wade MD Mar 17, 2017 10:19
[2017-03-17] MEDS ORDERED: SENN1TAB PO (10:20)
[2017-03-17] MEDS ORDERED: OXYC1TAB63 PO (10:20)
[2017-03-17] MEDS ORDERED: IBUP-232 PO (10:20)
--- NOTE | 2017-03-17 10:21 | HHI.DCPOC ---
Discharge Care Plan Diagnosis: (1) S/P primary low transverse Your Health Problems Are: delivery Report Symptoms to Your Doctor -Temperature above 100.5 degrees -Redness, of incision or excessive or foul smelling drainage -Unusual pain or calf pain -Increased vaginal bleeding -Painful or difficulty urinating -Feelings of extreme sadness or anxiety after 2 weeks Goals to Promote Your Health * To prevent worsening of your condition and complications * To maintain your health at the optimal level Directions to Meet Your Goals Take your medications as prescribed Follow your dietary instruction Follow activity as directed Ensure plenty of rest for recovery Drink fluids for hydration Keep your appointments as scheduled Take your immunizations and boosters as scheduled If your symptoms worsen call your PCP, if no PCP go to Urgent Care Center or Emergency Room Smoking is Dangerous to Your Health. Avoid second hand smoke Call the 24-hour crisis hotline for domestic abuse at Betsy Wade MD Mar 17, 2017 10:21
== END 2017-03-17 11:44 | disposition home or self-care (01) | DRG 765 ==
LOC: HOBED 11:48 → H2EB 12:34 → H1EA 03-13 11:11
PROVIDERS: ADMIT Obstetrics & Gynecology; ATTEND Obstetrics & Gynecology
PROC: 10D00Z1 Extraction of Products of Conception, Low, Open Approach (ICD-10-PCS; principal; 2017-03-13)
PROC: 30233N1 Transfusion of Nonautologous Red Blood Cells into Peripheral Vein, Percutaneous Approach (ICD-10-PCS; 2017-03-16)
DX: O42.02 Full-term premature rupture of membranes, onset of labor within 24 hours of rupture (principal); O87.2 Hemorrhoids in the puerperium; K59.00 Constipation, unspecified; O62.1 Secondary uterine inertia; Z37.0 Single live birth; Z3A.40 40 weeks gestation of pregnancy; D64.9 Anemia, unspecified; O99.02 Anemia complicating childbirth; K62.3 Rectal prolapse
CPT/HCPCS: 36430; 59025; 81001; 82805; 84112; 85007; 85014; 85018; 85025; 85027; 86850; 86900; 86901; 86920; 87086; 90715; 99285; J0690; J1170; J1200; J1756; J2274; J2370; J2405; J2590; J3010; J7120; P9016